=== PATIENT | female | born 1995 | race African-American/Black ===

== ENCOUNTER 2017-05-21 23:42 | Emergency (ER) | payer SELFPAY ==
[2017-05-22 00:40] VITALS: BP 110/87; PULSE 120; TEMP 98.1
[2017-05-22] MEDS ORDERED: ONDANSETRON 4 MG/2 ML VIAL IVPB ONE (00:59)
[2017-05-22] MEDS ORDERED: SODIUM CHLORIDE 0.9% 500 ML INFUS.BAG IV ONE (00:59)
--- NOTE | 2017-05-22 00:59 | PDOC ---
History of Present Illness - General History Source: Patient Exam Limitations: No Limitations - History of Present Illness Initial Comments: 05/22/17 01:40 The patient is a 22-year-old female with no significant past medical history, and presents to the emergency department with nausea, vomiting, and diarrhea for the last 24 hours. She reports multiple episodes of non-bloody non-bilious vomiting and non-bloody diarrhea. She denies eating anything out of the ordinary today. She denies any sick contacts. The patient denies chest pain, shortness of breath, headache and dizziness. The patient denies fever, chills, constipation. The patient denies dysuria, frequency, urgency and hematuria. Allergies: NKDA Other PMHx: asthma Past Surgical History: None reported Social History: No toxic habits reported <Patricia Dhillon - Last Filed: 05/22/17 01:40> <Rosalie Blake - Last Filed: 05/22/17 05:16> - General Chief Complaint: Vomiting/Diarrhea Stated Complaint: FATIGUE Time Seen by Provider: 05/22/17 00:57 Past History <Patricia Dhillon - Last Filed: 05/22/17 01:40> - Suicide/Smoking/Psychosocial Hx Smoking History: Never smoked Have you smoked in the past 12 months: No Information on smoking cessation initiated: No Hx Alcohol Use: No Drug/Substance Use Hx: No <Rosalie Blake - Last Filed: 05/22/17 05:16> - Past Medical History Allergies/Adverse Reactions: Allergies Allergy/AdvReac Type Severity Reaction Status Date / Time No Known Allergies Allergy Verified 05/22/17 00:37 Home Medications: Ambulatory Orders NK [No Known Home Medication] 05/22/17 Review of Systems - Review of Systems Able to Perform ROS?: Yes Comments:: 05/22/17 01:40 GENERAL/CONSTITUTIONAL: No fever or chills. No weakness. HEAD, EYES, EARS, NOSE AND THROAT: No change in vision. No ear pain or discharge. No sore throat. CARDIOVASCULAR: No chest pain or shortness of breath. RESPIRATORY: No cough, wheezing, or hemoptysis. GASTROINTESTINAL: (+) Nausea, (+) vomiting, (+) diarrhea. No constipation. GENITOURINARY: No dysuria, frequency, or change in urination. MUSCULOSKELETAL: No joint or muscle swelling or pain. No neck or back pain. SKIN: No rash NEUROLOGIC: No headache, vertigo, loss of consciousness, or change in strength/ sensation. ENDOCRINE: No increased thirst. No abnormal weight change. HEMATOLOGIC/LYMPHATIC: No anemia, easy bleeding, or history of blood clots. ALLERGIC/IMMUNOLOGIC: No hives or skin allergy. <Patricia Dhillon - Last Filed: 05/22/17 01:40> *Physical Exam - Vital Signs Last Vital Signs Temp Pulse Resp BP Pulse Ox 98.1 F 120 H 14 110/87 97 05/22/17 00:38 05/22/17 00:38 05/22/17 00:38 05/22/17 00:38 05/22/17 00:38 - Physical Exam Comments: 05/22/17 01:40 GENERAL: Awake, alert, and fully oriented, in no acute distress. Afebrile. Thin but well-nourished. HEAD: No signs of trauma EYES: PERRLA, EOMI, sclera anicteric, conjunctiva clear ENT: Auricles normal inspection, hearing grossly normal, nares patent, oropharynx clear without exudates. Moist mucosa NECK: Normal ROM, supple, no lymphadenopathy, JVD, or masses LUNGS: Breath sounds equal, clear to auscultation bilaterally. No wheezes, and no crackles HEART: Regular rate and rhythm, normal S1 and S2, no murmurs, rubs or gallops ABDOMEN: (+) Minimal LLQ ttp with deep palpation. Soft, normoactive bowel sounds. No guarding, no rebound. No masses EXTREMITIES: Normal range of motion, no edema. No clubbing or cyanosis. No cords, erythema, or tenderness NEUROLOGICAL: Cranial nerves II through XII grossly intact. Normal speech, normal gait SKIN: Warm, Dry, normal turgor, no rashes or lesions noted. <Patricia Dhillon - Last Filed: 05/22/17 01:40> - Vital Signs Last Vital Signs Temp Pulse Resp BP Pulse Ox 98.1 F 120 H 14 110/87 97 05/22/17 00:38 05/22/17 00:38 05/22/17 00:38 05/22/17 00:38 05/22/17 00:38 <Rosalie Blake - Last Filed: 05/22/17 05:16> ED Treatment Course - LABORATORY CBC & Chemistry Diagram: 05/22/17 01:10 05/22/17 01:10 - ADDITIONAL ORDERS Additional order review: 05/22/17 01:10 RBC 5.52 H MCV 84.2 MCHC 33.0 RDW 14.0 MPV 9.3 Neutrophils % 82.0 Lymphocytes % 11.0 Monocytes % 6.7 Eosinophils % 0.0 Basophils % 0.3 - Medications Given in the ED: ED Medications Discontinued Medications Generic Name Dose Route Start Last Admin Trade Name Ahsan PRN Reason Stop Dose Admin Famotidine/Sodium Chloride 50 mls @ 100 mls/hr 05/22/17 01:00 05/22/17 01:19 Pepcid 20 Mg Premixed Ivpb - IVPB 05/22/17 01:29 100 mls/hr ONCE ONE Administration Ondansetron HCl 4 mg 05/22/17 00:59 05/22/17 01:19 Zofran Injection IVPB 05/22/17 01:00 4 mg ONCE ONE Administration Sodium Chloride 1,000 ml 05/22/17 00:59 05/22/17 01:19 Normal Saline - IV 05/22/17 01:00 1,000 ml ONCE ONE Administration <Patricia Dhillon - Last Filed: 05/22/17 01:40> - LABORATORY CBC & Chemistry Diagram: 05/22/17 01:10 05/22/17 01:10 <Rosalie Blake - Last Filed: 05/22/17 05:16> Medical Decision Making - Medical Decision Making 05/22/17 05:14 Pt comes with nausea and vomiting. She has no other complaints. SHe states that she didn;t eat anything that could have caused this. She also has some loose stolls. No ill contacts. No travel. No fevers. Pt feels better after NSS and zofran and pepcid. Follow with PMD. <Rosalie Blake - Last Filed: 05/22/17 05:16> *DC/Admit/Observation/Transfer - Attestations Scribe Attestion: 05/22/17 01:40 Documentation prepared by Patricia Dhillon, acting as biomedical engineering internship for Rosalie Blake MD. <Patricia Dhillon - Last Filed: 05/22/17 01:40> - Discharge Dispostion Admit: No <Blake,Rosalie - Last Filed: 05/22/17 05:16> Diagnosis at time of Disposition: Viral gastroenteritis - Discharge Dispostion Disposition: HOME Condition at time of disposition: Stable - Patient Instructions Printed Discharge Instructions: DI for Viral Gastroenteritis -- Adult - Post Discharge Activity Forms/Work/School Notes: Back to Work, Parent(s) Back to Work Note
[2017-05-22] MEDS ORDERED: FAMOTIDINE 20 MG/50 ML IVPB 50 ML IVPB ONE ×2 (01:00→01:09)
[2017-05-22] MEDS ORDERED: ONDANSETRON 4 MG/2 ML VIAL ONE (01:08)
[2017-05-22 01:27] LABS: BASOPHIL 0.3 % (0-2.0); MCH 27.8 pg (25.7-33.7); MEAN CELL VOLUME 84.2 fl (80-96); MEAN PLT VOLUME 9.3 fl (7.5-11.1); PLATELET COUNT 338 K/MM3 (134-434); WHITE BLOOD COUNT 13.2 K/mm3 (4.0-10.0)
[2017-05-22 01:49] LABS: ALBUMIN 4.6 g/dl (3.4-5.0); ALK PHOS 95 U/L (45-117); AMYLASE 103 U/L (25-115); ANION GAP 18 (8-16); BILIRUBIN,TOTAL 1.4 mg/dL (0.2-1.0); CALCIUM 9.8 mg/dL (8.5-10.1); CO2 21 mmol/L (21-32); CREATININE 1.2 mg/dL (0.55-1.02); GLUCOSE,RANDOM 104 mg/dL (74-106); SGOT/AST 38 U/L (15-37); SGPT/ALT 41 U/L (12-78); TOT PROT 8.7 g/dl (6.4-8.2)
[2017-05-22] MEDS ORDERED: DEXTROSE 5%-NORMAL SALINE 1,000 ML IV SCH (02:15)
== END 2017-05-22 03:51 | disposition home or self-care (01) ==
LOC: JER 23:42
PROC: 3E033GC Introduction of Other Therapeutic Substance into Peripheral Vein, Percutaneous Approach (ICD-10-PCS; principal; 2017-05-21)
PROC: 3E0337Z Introduction of Electrolytic and Water Balance Substance into Peripheral Vein, Percutaneous Approach (ICD-10-PCS; 2017-05-21)
DX: A08.4 Viral intestinal infection, unspecified (principal)
CPT/HCPCS: 36415; 80053; 82150; 83690; 84702; 85025; 99281-25

== ENCOUNTER 2020-07-15 07:28 | Emergency (ER) | payer OTHER ==
[2020-07-15 08:00] VITALS: BMI 19.4
[2020-07-15] MEDS ORDERED: ACETAMINOPHEN 1000 MG/100 ML VIAL (NON FORMULARY) IVPB ONE (08:27)
[2020-07-15] MEDS ORDERED: ACETAMINOPHEN INJECTION 100 ML IVPB ONE (08:32)
[2020-07-15 09:04] LABS: BASO % 0.5 % (0-2.0); EOS % 3.5 % (0-4.5); HEMATOCRIT 41.9 % (32.4-45.2); HEMOGLOBIN 14.1 GM/dL (10.7-15.3); LYMPH % 36.8 % (8-40); MCH 28.5 pg (25.7-33.7); MCHC 33.7 g/dl (32.0-36.0); MEAN CELL VOLUME 84.4 fl (80-96); MEAN PLT VOLUME 8.9 fl (7.5-11.1); MONO % 7.2 % (3.8-10.2); PLATELET COUNT 275 K/MM3 (134-434); RBC 4.97 M/mm3 (3.60-5.2); RDW 13.5 % (11.6-15.6); WHITE BLOOD COUNT 5.7 K/mm3 (4.0-10.0)
[2020-07-15 09:27] LABS: POTASSIUM 4.2 mmol/L (3.5-5.1)
[2020-07-15 09:29] LABS: BLOOD UREA NITROGEN 6.1 mg/dL (7-18); CALCIUM 9.8 mg/dL (8.5-10.1)
[2020-07-15 09:30] LABS: EPI CELLS 28 /uL (0-25.1); HYALINE CASTS 1 /uL (0-3.1); PH,URINE 5.5 (5.0-8.0); URINE APPEARANCE CLEAR; URINE BACTERIA 384 /uL (0-1359); URINE BILIRUBIN NEGATIVE (NEGATIVE); URINE COLOR YELLOW; URINE GLUCOSE (UA) NEGATIVE (NEGATIVE); URINE KETONE NEGATIVE (NEGATIVE); URINE LEUK ESTERASE NEGATIVE (NEGATIVE); URINE NITRITE NEGATIVE (NEGATIVE); URINE PROTEIN NEGATIVE (NEGATIVE); URINE RBC 16 /uL (0-23.9); URINE UROBILINOGEN 0.2 mg/dL (0.2-1.0); URINE WBC 8 /uL (0-25.8)
[2020-07-15 09:32] LABS: CREATININE 0.9 mg/dL (0.55-1.3)
[2020-07-15 09:34] LABS: TOT PROT 7.7 g/dl (6.4-8.2)
[2020-07-15 10:59] LABS: YEAST NONE SEEN (NEGATIVE)
[2020-07-15 11:09] VITALS: TEMP 98.5
[2020-07-15 11:10] VITALS: BP 128/78; PULSE 75
== END 2020-07-15 11:10 | disposition home or self-care (01) ==
LOC: JER 07:28
PROC: 3E0333Z Introduction of Anti-inflammatory into Peripheral Vein, Percutaneous Approach (ICD-10-PCS; principal; 2020-07-15)
DX: R10.9 Unspecified abdominal pain (principal)
CPT/HCPCS: 36415; 74177-TC; 80053; 81003; 83690; 84703; 85025; 87086; 99285-25; J0131; Q9967